=== PATIENT | male | born 1960 | race Caucasian/White ===

== ENCOUNTER 2016-08-11 23:16 | Emergency (ER) | payer OTHER ==
[~2016-08-11] VITALS: Wt 75.0 kg
[2016-08-12] MEDS ORDERED: ONDANSETRON 4 MG INJ IV STA (00:15)
[2016-08-12] MEDS ORDERED: SOD CHLORIDE 0.9% 500 ML IV STA (00:15)
[2016-08-12] MEDS ORDERED: morphine 4 MG/ML VIAL IV STA (00:15)
[2016-08-12 00:33] LABS: ADD SCAN DIFF NO
[2016-08-12 00:37] LABS: BASOPHIL # 0.1 10^3/ul (0.0-0.1); BASOPHILS % 0.5 % (0.0-2.0); EOSINOPHILS # 1.1 10^3/ul (0.0-0.5); EOSINOPHILS % 7.7 % (0.0-7.0); HEMATOCRIT 47.1 % (42.0-52.0); LYMPHOCYTES # 2.2 10^3/ul (0.8-2.9); LYMPHOCYTES % 14.9 % (15.0-51.0); MEAN CORPUSCULAR HEMOGLOBIN 29.1 pg (29.0-33.0); MEAN CORPUSCULAR HGB CONC 31.8 g/dl (32.0-37.0); MEAN CORPUSCULAR VOLUME 91.3 fl (82.0-101.0); MEAN PLATELET VOLUME 10.1 fl (7.4-10.4); MONOCYTE # 1.1 10^3/ul (0.3-0.9); MONOCYTES % 7.4 % (0.0-11.0); NEUTROPHIL # 10.2 10^3/ul (1.6-7.5); NEUTROPHILS % 69.2 % (39.0-77.0); PLATELET COUNT 246 10^3/UL (140-415); RED BLOOD COUNT 5.16 10^6/ul (4.70-6.10); RED CELL DISTRIBUTION WIDTH 13.7 % (11.5-14.5); WHITE BLOOD COUNT 14.7 10^3/ul (4.8-10.8)
[2016-08-12 00:40] LABS: ADD UMIC YES; URINE BILIRUBIN (Dip) NEGATIVE (NEGATIVE); URINE BLOOD (Dip) 1+ (NEGATIVE); URINE COLOR LT. YELLOW (YELLOW); URINE GLUCOSE (Dip) NEGATIVE (NEGATIVE); URINE KETONES (Dip) NEGATIVE (NEGATIVE); URINE LEUKOCYTE ESTERASE (Dip) NEGATIVE (NEGATIVE); URINE NITRITE (Dip) NEGATIVE (NEGATIVE); URINE TOTAL PROTEIN (Dip) NEGATIVE (NEGATIVE); URINE UROBILINOGEN (Dip) 0.2 E.U./dL (0.1-1.0)
[2016-08-12 00:49] LABS: ALANINE AMINOTRANSFERASE 32 IU/L (13-69); ALBUMIN 4.4 g/dl (3.3-4.9); ALBUMIN/GLOBULIN RATIO 1.37; ALKALINE PHOSPHATASE 82 IU/L (42-121); ANION GAP 15 (8-16); ASPARTATE AMINO TRANSFERASE 27 IU/L (15-46); BILIRUBIN,INDIRECT 0.2 mg/dl (0-1.1); BILIRUBIN,TOTAL 0.2 mg/dl (0.2-1.3); BLOOD UREA NITROGEN 22 mg/dl (7-20); CALCIUM 9.2 mg/dl (8.4-10.2); CARBON DIOXIDE 27 mmol/L (21-31); CHLORIDE 104 mmol/L (97-110); CREATININE 0.77 mg/dl (0.61-1.24); GLUCOSE 103 mg/dl (70-220); POTASSIUM 4.3 mmol/L (3.5-5.1); SODIUM 142 mmol/L (135-144); TOTAL PROTEIN 7.6 g/dl (6.1-8.1)
[2016-08-12 01:02] LABS: TROPONIN-I < 0.012 ng/ml (0.00-0.12)
--- NOTE | 2016-08-12 01:42 | RADRPT ---
PROCEDURE: XR Chest. CLINICAL INDICATION: Abdominal pain TECHNIQUE: Single frontal view of the chest was obtained COMPARISON: None FINDINGS: The heart and mediastinum are within normal limits. The lungs are clear. There is no pleural effusion or pneumothorax. ECG leads projected over the chest. IMPRESSION: No acute disease. RPTAT: HJES .Farhan Gan MD, MD Date Time Electronically viewed and signed by .Farhan Gan MD, on 08/12/2016 01:42 .S/
--- NOTE | 2016-08-12 01:43 | RADRPT ---
PROCEDURE: CT Abdomen and pelvis without contrast. CLINICAL INDICATION: Abdominal pain. TECHNIQUE: CT scan of the abdomen and pelvis was performed on a multi-detector high-resolution CT scanner. Contiguous axial images were obtained from the lung bases to the ischial tuberosities wit hout intravenous contrast. Coronal and sagittal reformatted images were also obtained. Images were reviewed on the PACS workstation. One or more of the following dose reduction techniques were used: - Automated exposure control. - Adjustment of the mA and/or kV according to patient size. - Use of iterative reconstruction technique. Exam CTD/vol = 12.34 mGy. Total exam DLP = 759.56 mGy-cm. COMPARISON: None. FINDINGS: Evaluation of the lung bases demonstrates no pleural or parenchymal disease. Abdomen: The liver is normal in size. There are small hypodense lesions within the right and left lobe of the liver measuring up to 10 mm in size which probably represent cysts. There is no dilatat ion of the biliary tree. The gallbladder is not distended. The spleen, pancreas and bilateral adre nal glands are within normal limits. Bilateral kidneys are normal in size with no contour deforming mass identified. There are 1-2 mm renal calculi bilaterally. There is no radiopaque ureteral calc ulus identified. There is no hydronephrosis or hydroureter. There is no retroperitoneal adenopathy . The abdominal aorta is of normal caliber. There is colonic diverticulosis with mild thickening and stranding involving the mid sigmoid colon. There is no bowel obstruction or free air. A normal appendix is identified. There is no ascites. Pelvis: The bladder is unremarkable. The prostate and seminal vesicles are within normal limits. There is no significant pelvic adenopathy or free fluid. Evaluation of the osseous structures demonstrates no suspicious lytic or blastic lesion. IMPRESSION: Colonic diverticulosis with mild diverticulitis of the mid sigmoid colon. Bilateral nonobstructing renal calculi. Small hepatic cysts. .Jareth Abrams MD, MD Date Time Electronically viewed and signed by .Jareth Abrams MD, MD on 08/12/2016 01:43 .T/
[2016-08-12] MEDS ORDERED: CIPR500T4 PO (02:32)
[2016-08-12] MEDS ORDERED: METR500T PO (02:32)
--- NOTE | 2016-08-12 02:38 | ERD ---
ER Documentation Chief Complaint Date/Time DATE: 08/12/16 TIME: 02:34 Chief Complaint abdominal pain x 1 day HPI This is a 48-year-old male abdominal pain 1 day. Pain is mild to moderate intensity. Patient has history of diverticulitis. No nausea no vomiting no fevers no chills. No other current complaints. Pain is mild to moderate intensity no exacerbating relieving factors. ROS All systems reviewed and are negative except as per history of present illness. Medications Home Meds Active Scripts Metronidazole* (Flagyl*) 500 Mg Tablet, 500 MG PO TID for 7 Days, TAB Prov:JOANNE PADILLA 08/12/16 Ciprofloxacin Hcl* (Ciprofloxacin Hcl*) 500 Mg Tablet, 500 MG PO BID for 7 Days , TAB Prov:JOANNE PADILLA 08/12/16 Allergies Allergies: Coded Allergies: No Known Drug Allergies (Verified Allergy, Unknown, 08/11/16) PMhx/Soc Medical and Surgical Hx: pt denies Medical Hx History of Surgery: Yes (HERNIA REPAIR) Anesthesia Reaction: No Hx Neurological Disorder: No Hx Respiratory Disorders: No Hx Cardiac Disorders: No Hx Psychiatric Problems: No Hx Miscellaneous Medical Probl: No Hx Alcohol Use: No Hx Substance Use: No Hx Tobacco Use: No Smoking Status: Never smoker Physical Exam Vitals Vital Signs Date Time Temp Pulse Resp B/P Pulse Ox O2 Delivery O2 Flow Rate FiO2 08/11/16 23:22 97.8 87 20 133/89 99 Physical Exam Const: [] Head: Atraumatic Eyes: Normal Conjunctiva ENT: Normal External Ears, Nose and Mouth. Neck: Full range of motion..~ No meningismus. Resp: Clear to auscultation bilaterally Cardio: Regular rate and rhythm, no murmurs Abd: Soft, non tender, non distended. Normal bowel sounds Skin: No petechiae or rashes Back: No midline or flank tenderness Ext: No cyanosis, or edema Neur: Awake and alert Psych: Normal Mood and Affect Result Diagram: 08/12/16 0020 08/12/16 0020 Results 24 hrs Laboratory Tests Test 08/12/16 00:20 White Blood Count 14.710^3/ul Red Blood Count 5.1610^6/ul Hemoglobin 15.0g/dl Hematocrit 47.1% Mean Corpuscular Volume 91.3fl Mean Corpuscular Hemoglobin 29.1pg Mean Corpuscular Hemoglobin Concent 31.8g/dl Red Cell Distribution Width 13.7% Platelet Count 72065^3/UL Mean Platelet Volume 10.1fl Neutrophils % 69.2% Lymphocytes % 14.9% Monocytes % 7.4% Eosinophils % 7.7% Basophils % 0.5% Nucleated Red Blood Cells % 0.0/100WBC Neutrophils # 10.210^3/ul Lymphocytes # 2.210^3/ul Monocytes # 1.110^3/ul Eosinophils # 1.110^3/ul Basophils # 0.110^3/ul Nucleated Red Blood Cells # 0.010^3/ul Urine Color LT. YELLOW Urine Clarity CLEAR Urine pH 6.0 Urine Specific [place] 1.010 Urine Ketones NEGATIVE Urine Nitrite NEGATIVE Urine Bilirubin NEGATIVE Urine Urobilinogen 0.2 E.U./dL Urine Leukocyte Esterase NEGATIVE Urine Microscopic RBC 2-5/HPF Urine Microscopic WBC NONE SEEN/HPF Urine Hemoglobin 1+ Urine Glucose NEGATIVE% Urine Total Protein NEGATIVE Sodium Level 142mmol/L Potassium Level 4.3mmol/L Chloride Level 104mmol/L Carbon Dioxide Level 27mmol/L Anion Gap 15 Blood Urea Nitrogen 22mg/dl Creatinine 0.77mg/dl Glucose Level 103mg/dl Calcium Level 9.2mg/dl Total Bilirubin 0.2mg/dl Direct Bilirubin 0.00mg/dl Indirect Bilirubin 0.2mg/dl Aspartate Amino Transf (AST/SGOT) 27IU/L Alanine Aminotransferase (ALT/SGPT) 32IU/L Alkaline Phosphatase 82IU/L Troponin I < 0.012ng/ml Total Protein 7.6g/dl Albumin 4.4g/dl Globulin 3.20g/dl Albumin/Globulin Ratio 1.37 Lipase 273U/L Current Medications Medications (Trade) Dose Ordered Sig/Baldev Route PRN Reason Start Time Stop Time Status Last Admin Dose Admin Sodium Chloride (NS) 500 ml @ 500 mls/hr Q1H STAT IV 08/12/16 00:15 08/12/16 01:14 DC 08/12/16 00:28 Morphine Sulfate (morphine) 4 mg ONCE STAT IV 08/12/16 00:15 08/12/16 00:16 DC 08/12/16 00:29 Ondansetron HCl (Zofran Inj) 4 mg ONCE STAT IV 08/12/16 00:15 08/12/16 00:16 DC 08/12/16 00:28 Procedures/MDM Medical decision-makin-year-old gentleman who looks to be acute diverticulitis. Patient has very mild diverticulitis based on CT. Pain is resolved. Patient will be discharged home with prescriptions for Cipro Flagyl. Follow-up with PCP. Return in 8 hours for serial abdominal exams Departure Diagnosis: Primary Impression: Abdominal pain Abdominal location: unspecified location Qualified Code: R10.9 - Abdominal pain, unspecified location Additional Impression: Diverticulitis Diverticulitis site: unspecified part of intestinal tract Diverticulitis bleeding: without bleeding Diverticulitis complication: without perforation or abscess Qualified Code: K57.92 - Diverticulitis of intestine without perforation or abscess without bleeding, unspecified part of intestinal tract Condition: Stable Patient Instructions: DiverticuliJOANNE Rodríguez Aug 12, 2016 02:38
[2016-08-12 02:44] VITALS: BP 115/91; PULSE 62; RESP 16; TEMP 98.2
== END 2016-08-12 02:46 | disposition home or self-care (01) ==
LOC: E/R 23:16
DX: R10.9 Unspecified abdominal pain (principal); K57.92 Diverticulitis of intestine, part unspecified, without perforation or abscess without bleeding
CPT/HCPCS: 36415; 71010; 74176; 80053; 81001; 83690; 84484; 85025; 93005; 96374; 96375; 99285; J2270; J2405; J7040; 81003